=== PATIENT | female | born 1960 | race Caucasian/White ===

== ENCOUNTER → 2023-11-25 06:32 | Day surgery (SDC) | payer BC, SELFPAY | LOC: GI 06:32 | PROVIDERS: ATTENDING PHYSICIAN Internal Medicine Gastroenterology | DX: K44.9 Diaphragmatic hernia without obstruction or gangrene (principal); R12 Heartburn; R05.3 Chronic cough | CPT/HCPCS: 43235 ==

== ENCOUNTER → 2023-12-12 07:09 | Outpatient (REF) | payer BC, SELFPAY | LOC: RAD 07:09 | PROVIDERS: ATTENDING PHYSICIAN Internal Medicine Critical Care Medicine; FAMILY PHYSICIAN Family Medicine | DX: R93.89 Abnormal findings on diagnostic imaging of other specified body structures (principal) | CPT/HCPCS: 71250 ==

== ENCOUNTER 2023-12-29 10:31 | Emergency (ER) | payer BC, SELFPAY ==
[2023-12-29 10:37] VITALS: BP 164/96
--- NOTE | 2023-12-29 11:13 | ED.GENMED ---
History of Present Illness
General
Chief Complaint: Flank Pain
Time Seen by Provider: 12/29/23 10:58
Travel History
Have you had any contact with someone who has COVID-19?: No
Do you have any symptoms of coronavirus? Fever > 100 degrees, chills, cough, shortness of breath, sore throat, loss of taste or smell, muscle aches, or headache?: No
History of Present Illness
History of Present Illness:
63-year-old female presents emergency department for evaluation of right flank pain that began yesterday. She notes that 2 days ago she was lifting and twisting frequently at work and felt the pain may have been triggered by this. The pain is
worse whenever she twists her torso or reaches the right arm overhead. Denies any radiation of the symptoms. No pleuritic pain. Denies any anterior abdominal pain or hematuria. No lower urinary tract voiding symptoms. Has taken Aleve without
relief
Past History
Past History
ED Past Medical History: Other (SBO, Diverticulitis, PNA)
ED Past Surgical History: Bowel resection (Ileostomy 2017, reversal June 2000), Cholecystectomy and ( X 2)
Social History
Tobacco: Non-smoker
Alcohol: Occasional
Personal:
Living: with family
Employment: Employed
Review of Systems
Review of Systems
Allergies reviewed?: Yes
All Other Systems: ROS reviewed and negative except as documented in HPI and ROS
Phy Exam
Physical Exam
Physical Exam:
GEN: Well appearing, NAD, WDWN
HEENT: Oral mucosa moist, no scleral icterus
Cardiac: Regular rate
Lung: No respiratory distress, no tachypnea
Abdomen: Soft, nontender, no rigidity
MSK: No gross deformity or injuries. No focal tenderness to the right costovertebral angle at the site of reported pain. Pain is elicited with torso rotation or right arm abduction.
Skin: Good color, no pallor or jaundice, no rashes
Neuro: AO x3, moves all extremities freely
Psych: Calm, cooperative
Course
Orders/Labs/Results
Orders:
Orders
12/29/23 11:12
Ketorolac [Toradol] 30 mg IM NOW STA
12/29/23 11:36
Urinalysis Reflex To Culture Urgent
Date Specimen was Collected: 12/29/23
Time Specimen was Collected: 11:35
Urine Microscopic Reflex Cult Urgent
Abnormal Lab Results
12/29/23
11:36
Leukocyte Esterase Rfl Trace A
(Negative)
Vital Signs
Initial and Last Documented VS:
Initial Vital Signs
Temp Pulse Resp BP Pulse Ox
98.1 F 71 18 164/96 96
12/29/23 10:37 12/29/23 10:37 12/29/23 10:37 12/29/23 10:37 12/29/23 10:37
Last Documented Vital Signs
Temp Pulse Resp BP Pulse Ox
98.1 F 71 18 164/96 96
12/29/23 10:37 12/29/23 10:37 12/29/23 10:37 12/29/23 10:37 12/29/23 10:37
MDM/Problems Addressed
MDM/Problems Addressed:
Lack of hematuria and lack of colicky nature of pain is reassuring against ureterolithiasis. Some improvement with Toradol was noted. Supportive care discussed with the patient. No indication for imaging
*Critical Care Note
Total Time (30-74mins, 75-104mins- exclusive of procedures): Not Applicable
ED Attending Note
-
Portions of this chart may have been created with voice recognition software.� Occasional wrong word or��sound alike� substitutions may have occurred due to the inherent limitations of voice recognition software.
Discharge Plan
Departure
Patient Disposition: Home (Routine Discharge)
Date of Disposition: 12/29/23
Time of Disposition: 12:16
Patient with high blood pressure during this ER visit?: No
Discharge Problem:
Strain of flank
Instructions: Flank Pain (DC)
Prescriptions:
New
methocarbamol 750 mg tablet
750 - 1,500 mg PO Q8H PRN (Reason: muscle pain) Qty: 20 0RF
No Action
naproxen sodium [Aleve] 220 MG tablet
1 tab PO Q4HPRN PRN (Reason: mid pain)
multivitamin Tablet
1 tab PO DAILY
amoxicillin-pot clavulanate 875-125 mg tablet
1 tab PO Q12H Qty: 14 0RF
acetaminophen [Tylenol Extra Strength] 500 mg tablet
1,000 mg PO Q6HPRN PRN (Reason: mild pain) Qty: 1 0RF
tramadol 50 mg tablet
50 mg PO Q6HPRN PRN (Reason: severe pain/breakthrough pain) Qty: 5 0RF
Referrals:
Danial Damon DO [Family Provider] -
Interventions
Interventions:
*Risk Screen - Suicide Last Done: 12/29/23 11:45
*General Assessment Last Done: 12/29/23 10:37
*Neglect/Abuse Screening Last Done: 12/29/23 10:37
ED- Fall Risk Assessment Last Done: 12/29/23 11:42
*ED COVID-19 Vaccine History Last Done: 12/29/23 10:37
*Nursing Disposition Last Done: 12/29/23 12:30
YM-Clcddq-Wlzstakfat Assessment Last Done: 12/29/23 11:42
ED-Female Genitourinary Assessment Last Done: 12/29/23 11:42
Discharge Date and Time
Discharge Date/Time: 12/29/23 12:31
[2023-12-29] MEDS: TORADOL 30 MG IM (11:38)
[2023-12-29 11:42] VITALS: BMI 35.3
[2023-12-29 11:57] LABS: Urine Albumin Negative (Neg - Trace); Urine Bilirubin Negative (Negative); Urine Character Clear (Clear); Urine Color Yellow; Urine Glucose Negative (Negative); Urine Ketone Negative (Negative); Urine Leukocyte Trace (Negative); Urine Nitrite Negative (Negative); Urine Occult Blood Negative (Negative); Urine Urobilinogen Negative (Neg - 1+)
[2023-12-29 12:09] LABS: Urine Red Blood Cell 0-2 /HPF (0-2)
[2023-12-29 12:10] LABS: Urine White Cell 0-2 /HPF (0-5)
== END 2023-12-29 12:31 | disposition home or self-care (01) ==
LOC: EMR 10:31
PROVIDERS: Physician Assistant; EMERGENCY PHYSICIAN Emergency Medicine; FAMILY PHYSICIAN Family Medicine
DX: S39.011A Strain of muscle, fascia and tendon of abdomen, initial encounter (principal); X50.0XXA Overexertion from strenuous movement or load, initial encounter
CPT/HCPCS: 99284; 96372; 81003; 81015

== ENCOUNTER → 2024-03-12 08:04 | Outpatient (REF) | payer BC, SELFPAY | LOC: RAD 08:04 | PROVIDERS: ATTENDING PHYSICIAN Internal Medicine Critical Care Medicine; FAMILY PHYSICIAN Family Medicine | DX: J90 Pleural effusion, not elsewhere classified (principal) | CPT/HCPCS: 71250 ==

== ENCOUNTER → 2025-04-30 08:10 | Outpatient (REF) | payer BC, SELFPAY ==
[2025-04-30 10:03] LABS: Hematocrit 42.3 % (37.0-47.0); Hemoglobin 14.2 g/dL (12.0-16.0); Mean Corp Hgb Conc. 33.6 g/dL (33.0-37.0); Mean Corpuscular Volume 86.3 fL (81.0-99.0); Nucleated Red Blood Cells % 0 %; Platelet Count 237 10^3/uL (130-400); Red Cell Dist. Width 13.4 % (11.5-14.5)
[2025-04-30 10:44] LABS: Blood Urea Nitrogen 12 mg/dl (7-17); Calcium 9.3 mg/dl (8.4-10.2); Carbon Dioxide 30 mmol/L (22-30); Chloride 103 mmol/L (98-107); Glucose 106 mg/dl (70-99); Potassium 4.0 mmol/L (3.5-5.1); Sodium 139 mmol/L (135-145); eGFR > 60.00
== END ==
LOC: HWRAD 08:10
PROVIDERS: ATTENDING PHYSICIAN Internal Medicine Critical Care Medicine; FAMILY PHYSICIAN Family Medicine; REFERRING PHYSICIAN Specialist
DX: J90 Pleural effusion, not elsewhere classified (principal); Z01.818 Encounter for other preprocedural examination
CPT/HCPCS: 36415; 71250; 80048; 85025; 93005

== ENCOUNTER → 2025-08-21 10:46 | Outpatient (REF) | payer BC, SELFPAY | LOC: HWWDC 10:46 | PROVIDERS: ATTENDING PHYSICIAN Physician Assistant | DX: Z12.31 Encounter for screening mammogram for malignant neoplasm of breast (principal) | CPT/HCPCS: 77063; 77067 ==